=== PATIENT | female | born 1985 | race Caucasian/White ===

== ENCOUNTER 2019-11-19 20:37 | Emergency (ER) | payer MEDICAID ==
[~2019-11-19] VITALS: Ht 167.6 cm; Wt 57.3 kg
[2019-11-19 20:50] VITALS: BP 128/78
--- NOTE | 2019-11-19 20:53 | NUR ---
8 SUTURES REMOVED, PT TOLERATE PROCEDURE WELL, REVIEWED BY CHANTEL VILLA .
== END 2019-11-19 21:09 | disposition home or self-care (01) ==
LOC: ED 20:55
DX: S01.81XD Laceration without foreign body of other part of head, subsequent encounter (principal); X58.XXXD Exposure to other specified factors, subsequent encounter
CPT/HCPCS: 99281

== ENCOUNTER 2020-06-16 01:09 | Emergency (ER) | payer SELFPAY ==
[~2020-06-16] VITALS: Ht 162.6 cm; Wt 61.6 kg
[2020-06-16 01:21] VITALS: BP 146/86
[2020-06-16] MEDS ORDERED: MAALOX/HYOSCYAMINE/LIDOCAINE 45 ML BTL PO ONE (01:30)
[2020-06-16 01:48] LABS: BASOPHILS % (AUTO) 1 % (0-1); EOSINOPHILS % (AUTO) 1 % (1-7); LYMPHOCYTES % (AUTO) 30 % (22-44); MEAN CORPUSCULAR HEMOGLOBIN 30.7 pg (27.0-34.8); MEAN CORPUSCULAR HGB CONC 33.6 g/dL (32.4-35.8); MONOCYTES % (AUTO) 7 % (2-9); NEUTROPHILS % (AUTO) 61 % (42-75); PLATELET COUNT 327 x10^3/uL (130-400); RED BLOOD COUNT 4.64 x10^6/uL (3.82-5.3); RED CELL DISTRIBUTION WIDTH 13.3 % (9.6-15.2)
[2020-06-16] MEDS ORDERED: MAALOX/HYOSCYAMINE/LIDOCAINE 45 ML BTL ONE (01:53)
--- NOTE | 2020-06-16 01:55 | NUR ---
PT MEDICATED PER MAR
[2020-06-16 01:57] LABS: ALANINE AMINOTRANSFERASE 48 U/L (12-78); ALBUMIN 3.4 g/dL (3.4-5.0); ANION GAP 4 mmol/L (5-15); CALCIUM 8.4 mg/dL (8.5-10.1); CHLORIDE 109 mmol/L (98-107); CREATININE 0.81 mg/dL (0.55-1.02)
[2020-06-16 02:02] LABS: ALKALINE PHOSPHATASE 48 U/L (45-117); BILIRUBIN,TOTAL 0.2 mg/dL (0.2-1.0)
--- NOTE | 2020-06-16 02:03 | NUR ---
PT SLEEPING ON PADMA
[2020-06-16 02:24] LABS: MD SCAN
--- NOTE | 2020-06-16 02:45 | NUR ---
PT REMOVED MONITORING, ROLLED OVER AND BACK TO SLEEP AT THIS TIME.
--- NOTE | 2020-06-16 03:09 | NUR ---
PER ERP POC PT TO DC HOME NO LONGER C/O PAIN
--- NOTE | 2020-06-16 03:28 | NUR ---
Patient/Caregiver given discharge instructions and they have confirmed that they understand the instructions. Patient ambulatory with steady gait.
== END 2020-06-16 03:38 | disposition home or self-care (01) ==
LOC: ED 01:39
DX: K29.00 Acute gastritis without bleeding (principal); R11.2 Nausea with vomiting, unspecified; F17.210 Nicotine dependence, cigarettes, uncomplicated
CPT/HCPCS: 36415; 76700; 80053; 83690; 84703; 85025; 99406

== ENCOUNTER 2020-12-24 08:59 | Emergency (ER) | payer SELFPAY ==
[~2020-12-24] VITALS: Ht 162.6 cm; Wt 60.0 kg
--- NOTE | 2020-12-24 09:06 | NUR ---
ERASMO RN: THIS IS A 35 YEAR OLD FEMALE WHO WAS BIB AMBULANCE DUE TO SEVERE ABD PAIN 11/08. PT STATES SHE HAS A HX OF ABD ISSUES. UP TO BATHROOM OBTAIN UA. CONTINOUS SP02 AT 98,AND CYCLE VS.
[2020-12-24 09:24] LABS: BASOPHILS % (AUTO) 1 % (0-1); EOSINOPHILS % (AUTO) 1 % (1-7); LYMPHOCYTES % (AUTO) 28 % (22-44); MEAN CORPUSCULAR HEMOGLOBIN 31.2 pg (27.0-34.8); MEAN CORPUSCULAR HGB CONC 34.3 g/dL (32.4-35.8); MEAN PLATELET VOLUME 8.2 fL (7.4-10.4); MONOCYTES % (AUTO) 6 % (2-9); NEUTROPHILS % (AUTO) 65 % (42-75); PLATELET COUNT 362 x10^3/uL (130-400); RED BLOOD COUNT 5.36 x10^6/uL (3.82-5.3); RED CELL DISTRIBUTION WIDTH 13.6 % (9.6-15.2)
[2020-12-24] MEDS ORDERED: SODIUM CHLORIDE 0.9% 1,000ML IVBOLUS ONE (09:30)
[2020-12-24] MEDS ORDERED: ONDANSETRON 2MG/ML, 2ML IVPush ONE (09:30)
[2020-12-24] MEDS ORDERED: SODIUM CHLORIDE 0.9% 1,000 ML IV ONE (09:30)
[2020-12-24] MEDS ORDERED: PANTOPRAZOLE 40 MG IV IV ONE (09:30)
[2020-12-24] MEDS ORDERED: SODIUM CHLORIDE FLUSH 10ML SYR IVF ONE (09:30)
[2020-12-24 09:32] LABS: ALANINE AMINOTRANSFERASE 32 U/L (12-78); ALBUMIN 4.1 g/dL (3.4-5.0); ANION GAP 6 mmol/L (5-15); CALCIUM 9.3 mg/dL (8.5-10.1); CHLORIDE 102 mmol/L (98-107); CREATININE 0.82 mg/dL (0.55-1.02)
[2020-12-24 09:36] LABS: MICROSCOPIC INDICATED
[2020-12-24 09:37] LABS: ALKALINE PHOSPHATASE 60 U/L (45-117); BILIRUBIN,TOTAL 0.4 mg/dL (0.2-1.0); TOTAL PROTEIN 8.9 g/dL (6.4-8.2)
[2020-12-24] MEDS ORDERED: PANTOPRAZOLE 40 MG IV ONE (09:38)
[2020-12-24] MEDS ORDERED: ONDANSETRON 2MG/ML, 2ML ONE (09:38)
--- NOTE | 2020-12-24 09:46 | NUR ---
CONTACT WITH PT. PT MEDICATED ORDERED. U/S IN PROGRESS
--- NOTE | 2020-12-24 11:15 | NUR ---
PT SLEEPING, AROUSES TO NAME. NO ACTIVE VOMITING NOTED. IV FLUIDS COMPLETED. PT AWARE OF WAITING FOR TEST RESULTS.
[2020-12-24] MEDS ORDERED: MAALOX/HYOSCYAMINE/LIDOCAINE 45 ML BTL ONE (12:22)
--- NOTE | 2020-12-24 12:28 | NUR ---
ALFREDITO GOMEZ. RECEIVED REPORT FROM ALEKS GOMEZ. CARE ASSUMED. PT MEDICATED NOTED IN [facility]AR FOR 8/10 ABD PAIN PER ERP. RESTING COMFORTABLY. DENIES NEED TO USE RESTROOM.VSS. CALL LIGHT IN REACH. FALL PRECAUTIONS IN PLACE.
[2020-12-24] MEDS ORDERED: MAALOX/HYOSCYAMINE/LIDOCAINE 45 ML BTL PO ONE (12:30)
[2020-12-24] MEDS ORDERED: PROMETHAZINE 25 MG/ML, 1ML IM ONE (13:00)
[2020-12-24] MEDS ORDERED: HYDROmorphone 1 MG/ML, 1ML INJ IV ONE (13:00)
--- NOTE | 2020-12-24 13:07 | NUR ---
BEDSIDE REPORT AND TRANSFER OF CARE BACK TO PRIMARY RN
[2020-12-24] MEDS ORDERED: PROMETHAZINE 25 MG/ML, 1ML ONE (13:29)
[2020-12-24] MEDS ORDERED: HYDROmorphone 2 MG/ML, 1ML ONE (13:30)
--- NOTE | 2020-12-24 13:38 | NUR ---
PT MOSTLY SLEEPING, AROUSES TO NAME. SHORT 1 WORD ANSWERS TO QUESTIONS. PT MEDICATED FOR 5/10 PAIN AND NAUSEA ORDERED. PT AWARE OF TO BE DC'D AND TO WORK ON GETTING "A RIDE." GI COCKTAIL "HELPED A LITTLE BIT"
--- NOTE | 2020-12-24 14:04 | NUR ---
TASK RN: PT REPORTS SIGNIFICANT IMPROVEMENT IN S/S SINCE ARRIVAL. DC EDUCATION PROVIDED, PT DEMONSTRATES UNDERSTANDING. PT AMBULATED STEADILY TO DC WITH RN. PROVIDED CRACKERS AND PO FLUIDS. FRIEND TO TRANSPORT PT HOME.
[2020-12-24 14:05] VITALS: BP 158/77
--- NOTE | 2020-12-26 20:28 | NUR ---
pt had contamined urine sample come back. unable to reach pt, number on file is friends number. friend stated pt does not have phone or contact info
== END 2020-12-24 14:07 | disposition home or self-care (01) ==
LOC: ED 11:45
DX: K29.01 Acute gastritis with bleeding (principal); R10.13 Epigastric pain; R11.2 Nausea with vomiting, unspecified; F17.200 Nicotine dependence, unspecified, uncomplicated
CPT/HCPCS: 36415; 76700; 80053; 81001; 83690; 84703; 85025; 87077; 87086; 87186; 96361; 96372; 96374; 96375; 99285; C9113; J1170; J2405; J2550; J7030